=== PATIENT | male | born 1955 | race Two or more races ===

== ENCOUNTER 2025-09-22 16:59 | Emergency (ER) | payer OTHER ==
[~2025-09-22] VITALS: Ht 165.1 cm; Wt 76.0 kg
[~2025-09-22 16:59] MED LIST: AMLO-905 MT; CHLO25CA10 PO; QUET25TA PO; THIA100T72 PO
[2025-09-22 17:03] VITALS: BP 177/96; PULSE 88; RESP 16; TEMP 98.1; O2SAT 96
[2025-09-22] MEDS ORDERED: KETOROLAC 15MG/ML VIAL IV ONE (17:45)
== END 2025-09-22 18:45 | disposition left against medical advice (07) ==
LOC: ER 16:59
DX: R10.32 Left lower quadrant pain (principal); Z79.899 Other long term (current) drug therapy
CPT/HCPCS: 99283